=== PATIENT | female | born 1995 | race Caucasian/White ===

== ENCOUNTER 2021-01-23 21:27 | Emergency (ER) | payer OTHER | END 2021-01-23 23:27 | disposition home or self-care (01) | LOC: ERS 21:27 | DX: S92.912A Unspecified fracture of left toe(s), initial encounter for closed fracture (principal); S99.202A Unspecified physeal fracture of phalanx of left toe, initial encounter for closed fracture; W22.8XXA Striking against or struck by other objects, initial encounter ==